=== PATIENT | male | born 1965 | race Two or more races ===

== ENCOUNTER 2017-06-27 12:37 | Emergency (ER) | payer BC ==
[2017-06-27 12:45] VITALS: BP 112/88; PULSE 89; TEMP 98.2; BMI 34.7
--- NOTE | 2017-06-27 14:19 | PDOC ---
History of Present Illness - General Chief Complaint: Pain Stated Complaint: RT KNEE PAIN Time Seen by Provider: 06/27/17 13:41 History Source: Patient Exam Limitations: No Limitations - History of Present Illness Initial Comments: 06/27/17 14:16 CHIEF COMPLAINT: Right medial knee pain HISTORY OF PRESENT ILLNESS: Patient is a 52-year-old male, history of right knee injury reports last evening he was dancing her to pop to his right knee now with medial right knee pain. Walking with a cane. REVIEW OF SYSTEMS: GENERAL: Afebrile, A&O x3 RESPIRATORY: No cough, wheezing, or hemoptysis. CARDIAC: No CP or SOB MUSCULOSKELETAL: Pain to right medial knee SKIN : No erythema, no edema, no bruising, no deformity. NEUROLOGICAL: Denies any numbness or tingling. PHYSICAL EXAM: GENERAL: The patient is awake, alert, and fully oriented, in no acute distress. HEAD: Normal with no signs of trauma. RESPIRATORY: Lungs clear bilaterally no rhonchi, rales, or wheezes CARDIAC: S1-S2 audible, no murmur rub or gallop EXTREMITIES: Decreased range of motion to right knee related to pain, no fluid appreciated, no bulge sign. No pain to superior or inferior patella. Negative drop test. Negative posterior leg test. No joint laxity noted, no ecchymosis, no deformity, no abrasions ,no edema. +3 popliteal pulse. Negative Homans sign. No calf pain or tenderness, no erythema or edema. MUSCULOSKELETAL: No spinal point tenderness. SKIN: Warm, Dry, normal turgor, no erythema, no edema no bruising. Past History - Past Medical History Allergies/Adverse Reactions: Allergies Allergy/AdvReac Type Severity Reaction Status Date / Time No Known Allergies Allergy Verified 06/27/17 12:45 Home Medications: Ambulatory Orders Multivitamins [Multivit ([facility] Formul[facility])] 1 tab PO DAILY 10/05/14 Testosterone Propionate 1 tab PO DAILY 10/05/14 Ibuprofen [Motrin -] 600 mg PO TID #21 tablet 06/27/17 HTN: Yes (border line) Other medical history: obese - Family Disease History Family Disease History: Heart Disease: Father - Suicide/Smoking/Psychosocial Hx Smoking History: Current some day smoker Have you smoked in the past 12 months: Yes Number of Cigarettes Smoked Daily: 1 Cigars Per Day: 2 Information on smoking cessation initiated: Yes 'Breaking Loose' booklet given: 06/27/17 Hx Alcohol Use: No Drug/Substance Use Hx: No Substance Use Type: None *Physical Exam - Vital Signs Last Vital Signs Temp Pulse Resp BP Pulse Ox 98.2 F 89 19 112/88 97 06/27/17 12:42 06/27/17 12:42 06/27/17 12:42 06/27/17 12:42 06/27/17 12:42 ED Treatment Course - RADIOLOGY Radiology Studies Ordered: Category Date Time Status KNEE 3 POS-RIGHT [RAD] Stat Radiology 06/27/17 13:41 Completed Medical Decision Making - Medical Decision Making 06/27/17 14:18 A/P: Patient here for evaluation of pain to right knee after dancing hurt a pop there is no erythema edema or deformity. Patient sent to x-ray x-rays normal no effusion is noted however patient with pain 10 out of 10. Will apply knee immobilizer, anti-inflammatories, follow-up with orthopedics. I discussed the physical exam findings, ancillary test results and final diagnoses with the patient. I answered all of the patient's questions. The patient was satisfied with the care received and felt comfortable with the discharge plan and treatment plan. The patient will call to arrange follow-up and will return to the Emergency Department with any new, persistent or worsening symptoms. *DC/Admit/Observation/Transfer Diagnosis at time of Disposition: Right knee injury Qualifiers: Encounter type: initial encounter Qualified Code(s): S89.91XA - Unspecified injury of right lower leg, initial encounter - Discharge Dispostion Disposition: HOME Condition at time of disposition: Good Admit: No - Prescriptions Prescriptions: Ibuprofen [Motrin -] 600 mg PO TID #21 tablet - Patient Instructions Printed Discharge Instructions: DI for Knee Pain, How to Use a Knee Immobilizer Additional Instructions: 1. Please return to the emergency department with any redness, swelling, increased pain, or any other concerns. 2. Keep splint on. 3. Please follow up in the office of Dr. Perry within a week if pain persists. 4. No weightbearing 5. Ice and elevate when at rest. 6. Motrin for pain - Post Discharge Activity Forms/Work/School Notes: Back to Work
== END 2017-06-27 14:24 | disposition home or self-care (01) ==
LOC: JERFT 12:37
PROC: 2W3QXYZ Immobilization of Right Lower Leg using Other Device (ICD-10-PCS; principal; 2017-06-27)
DX: S89.81XA Other specified injuries of right lower leg, initial encounter (principal); X50.3XXA Overexertion from repetitive movements, initial encounter; Y93.49 Activity, other involving dancing and other rhythmic movements; Y92.89 Other specified places as the place of occurrence of the external cause; Y99.8 Other external cause status
CPT/HCPCS: 73562-TC-RT; 99281-25

== ENCOUNTER 2019-03-05 09:21 | Inpatient (IN) | payer BC ==
--- NOTE | 2019-03-05 10:10 | PDOC ---
Attending Attestation - Resident Resident Name: NeyDonny newman - ED Attending Attestation I have performed the following: I have examined & evaluated the patient, The case was reviewed & discussed with the resident, I agree w/resident's findings & plan, Exceptions are as noted - HPI HPI: 54 yo M history HTN presents with buttock abscess. He states he felt a small pimple in the shower a few days ago. He states it rapidly got larger, now it is hard and painful. Denies fever, chills. Normal BMs. No prior history abscesses. - Physicial Exam PE: GENERAL: Awake, alert, and fully oriented, in no acute distress HEAD: No signs of trauma EYES: PERRLA, EOMI, sclera anicteric, conjunctiva clear ENT: Auricles normal inspection, hearing grossly normal, nares patent, oropharynx clear without exudates. Moist mucosa NECK: Normal ROM, supple, no lymphadenopathy, JVD, or masses LUNGS: Breath sounds equal, clear to auscultation bilaterally. No wheezes, and no crackles HEART: Regular rate and rhythm, normal S1 and S2, no murmurs, rubs or gallops ABDOMEN: Soft, nontender, normoactive bowel sounds. No guarding, no rebound. No masses EXTREMITIES: Normal range of motion, no edema. No clubbing or cyanosis. No cords, erythema, or tenderness NEUROLOGICAL: Cranial nerves II through XII grossly intact. Normal speech, normal gait. Motor and sensation intact SKIN: Warm, Dry, normal turgor, no rashes or lesions noted. RECTAL: +Indurated tender area between the 7 and 9 o'clock positions. +Small hemorrhoid at the 6 o'clock position. - Medical Decision Making Pt with perirectal abscess, will obtain CT to evaluate the depth. Likely will require gen surg consult.
[2019-03-05 10:31] LABS: BASO % 0.6 % (0-2.0); HEMOGLOBIN 14.8 GM/dL (11.7-16.9); LYMPH % 18.5 % (8-40); MCH 29.2 pg (25.7-33.7); MEAN CELL VOLUME 88.4 fl (80-96); MEAN PLT VOLUME 7.8 fl (7.5-11.1); MONO % 9.5 % (3.8-10.2); NEUT % 68.4 % (42.8-82.8); PLATELET COUNT 290 K/MM3 (134-434); RBC 5.09 M/mm3 (4.00-5.60); RDW 13.8 % (11.9-15.9); WHITE BLOOD COUNT 8.1 K/mm3 (4.0-10.0)
--- NOTE | 2019-03-05 11:02 | PDOC ---
History of Present Illness - General Chief Complaint: Abscess Boil Stated Complaint: PAIN Time Seen by Provider: 03/05/19 09:44 History Source: Patient Exam Limitations: No Limitations - History of Present Illness Initial Comments: 03/05/19 10:55 Patient is a 54M with history of HTN here today complaining of an abscess near his anus. He says it started 4 days ago and felt like a small pimple. It got worse so he came into the ED. Denies fevers, chills, nausea, vomiting. Last bowel movement this morning, normal. Denies chest pain and shortness of breath. Denies history of abscesses. Past History - Past Medical History Allergies/Adverse Reactions: Allergies Allergy/AdvReac Type Severity Reaction Status Date / Time No Known Allergies Allergy Verified 03/05/19 09:28 Home Medications: Ambulatory Orders Multivitamins [Multivit ([facility] Formul[facility])] 1 tab PO DAILY 10/05/14 Ibuprofen [Motrin -] 600 mg PO TID #21 tablet 06/27/17 Cardiac Disorders: Yes (irregular) COPD: No HTN: Yes (border line) - Family Disease History Family Disease History: Heart Disease: Father - Suicide/Smoking/Psychosocial Hx Smoking History: Never smoked Have you smoked in the past 12 months: Yes Number of Cigarettes Smoked Daily: 1 Cigars Per Day: 2 'Breaking Loose' booklet given: 06/27/17 Hx Alcohol Use: No Drug/Substance Use Hx: No Substance Use Type: None Review of Systems - Review of Systems Able to Perform ROS?: Yes Comments:: 03/05/19 11:00 GENERAL/CONSTITUTIONAL: No fever or chills. No weakness. HEAD, EYES, EARS, NOSE AND THROAT: No change in vision. No sore throat. CARDIOVASCULAR: No chest pain or shortness of breath RESPIRATORY: No cough, wheezing, or hemoptysis. GASTROINTESTINAL: No nausea, vomiting, diarrhea or constipation. GENITOURINARY: No dysuria, frequency, or change in urination. MUSCULOSKELETAL: No joint or muscle swelling or pain. No neck or back pain. SKIN: No rash NEUROLOGIC: No headache, vertigo, loss of consciousness, or change in strength/ sensation. ALLERGIC/IMMUNOLOGIC: No hives or skin allergy. *Physical Exam - Vital Signs Last Vital Signs Temp Pulse Resp BP Pulse Ox 98.9 F 104 H 18 170/87 99 03/05/19 09:25 03/05/19 09:25 03/05/19 09:25 03/05/19 09:25 03/05/19 09:25 - Physical Exam Comments: 03/05/19 11:02 GENERAL: Awake, alert, and fully oriented, in no acute distress RECTAL: Area of induration at 7 o'clock, tender, goes past anus HEAD: No signs of trauma, normocephalic, atraumatic EYES: PERRLA, EOMI, sclera anicteric, conjunctiva clear ENT: Auricles normal inspection, hearing grossly normal, nares patent, oropharynx clear without exudates. Moist mucosa NECK: Normal ROM, supple, no lymphadenopathy, JVD, or masses LUNGS: No distress, speaks full sentences, clear to auscultation bilaterally HEART: Regular rate and rhythm, normal S1 and S2, no murmurs, rubs or gallops, peripheral pulses normal and equal bilaterally. ABDOMEN: Soft, nontender, normoactive bowel sounds. No guarding, no rebound. No masses EXTREMITIES: Normal inspection, Normal range of motion, no edema. No clubbing or cyanosis. NEUROLOGICAL: Cranial nerves II through XII grossly intact. Normal speech, normal gait, no focal sensorimotor deficits SKIN: Warm, Dry, normal turgor, no rashes or lesions noted. ED Treatment Course - LABORATORY CBC & Chemistry Diagram: 03/05/19 10:15 03/05/19 10:22 - ADDITIONAL ORDERS Additional order review: 03/05/19 10:15 RBC 5.09 MCV 88.4 MCHC 33.0 RDW 13.8 MPV 7.8 Neutrophils % 68.4 Lymphocytes % 18.5 Monocytes % 9.5 Eosinophils % 3.0 Basophils % 0.6 Medical Decision Making - Medical Decision Making 03/05/19 11:05 Patient is 54M with history of HTN here today with cherie-rectal abscess. Labs drawn. Will do CT to evaluate extent of abscess. 03/05/19 13:12 CBC, CMP reassuring. CT shows 3x2cm perianal abscess. Case d/w Dr Galarza, general surgery, recs ceftriaxone/flagyl and admission. Will see tomorrow. Dr Isabelle castelan for admission. Accepted. *DC/Admit/Observation/Transfer Diagnosis at time of Disposition: Perianal abscess - Discharge Dispostion Disposition: HOME Condition at time of disposition: Good Decision to Admit order: Yes - Referrals - Patient Instructions - Post Discharge Activity
[2019-03-05 11:24] LABS: ALBUMIN 3.8 g/dl (3.4-5.0); BILIRUBIN,TOTAL 0.7 mg/dL (0.2-1); CALCIUM 8.9 mg/dL (8.5-10.1); POTASSIUM 4.6 mmol/L (3.5-5.1); TOT PROT 7.6 g/dl (6.4-8.2)
[2019-03-05] MEDS ORDERED: CEFTRIAXONE 1,000 MG in DEXTROSE 5%-WATER - 50 ML IVPB ONE (13:12)
[2019-03-05] MEDS ORDERED: CEFTRIAXONE 1 GM/50 ML BAG ONE (13:20)
[2019-03-05 14:42] VITALS: BMI 35.3
--- NOTE | 2019-03-05 15:28 | EKG ---
Test Reason : Blood Pressure : / mmHG Vent. Rate : 110 BPM Atrial Rate : 133 BPM P-R Int : 160 ms QRS Dur : 094 ms QT Int : 334 ms P-R-T Axes : 063 -13 009 degrees QTc Int : 452 ms SINUS TACHYCARDIA WITH PREMATURE ATRIAL COMPLEXES WITH ABERRANT CONDUCTION AND PREMATURE VENTRICULAR COMPLEXES MODERATE VOLTAGE CRITERIA FOR LVH, MAY BE NORMAL VARIANT NONSPECIFIC T WAVE ABNORMALITY ABNORMAL ECG NO PREVIOUS ECGS AVAILABLE Confirmed by TOMASZ NASCIMENTO, RAYMUNDO ([id number]) on 03/05/2019 3:27:47 PM Referred By: Tee CARREON Confirmed By:RAYMUNDO TOLBERT MD
[2019-03-05] MEDS: metoPROLOL SUCCINATE 25 MG TAB.SR.24H (FP) PO SCH (16:20)
[2019-03-05] MEDS: SODIUM CHLORIDE 0.45% 1,000 ML IV SCH ×2 (16:21→21:43)
[2019-03-05] MEDS: ACETAMINOPHEN 325 MG TABLET (FP) PO PRN (21:46)
[2019-03-06 07:35] LABS: HEMATOCRIT 43.2 % (35.4-49); HEMOGLOBIN 14.7 GM/dL (11.7-16.9); MCH 29.7 pg (25.7-33.7); MCHC 34.1 g/dl (32.0-35.9); MEAN CELL VOLUME 87.3 fl (80-96); MEAN PLT VOLUME 7.9 fl (7.5-11.1); PLATELET COUNT 271 K/MM3 (134-434); RBC 4.95 M/mm3 (4.00-5.60); RDW 13.8 % (11.9-15.9); WHITE BLOOD COUNT 10.2 K/mm3 (4.0-10.0)
[2019-03-06 08:58] LABS: INR 1.08 (0.83-1.09); PROTHROMBIN TIME (PATIENT) 12.8 SEC (9.7-13.0)
[2019-03-06 09:01] LABS: ACTIVATED PTT 32.8 SECONDS (25.2-36.5)
--- NOTE | 2019-03-06 10:34 | HP ---
Admitting History and Physical - Admission History of Present Illness: anal abcess x 1wk no other complaints History Source: Patient Limitations to Obtaining History: No Limitations - Past Medical History Gastrointestinal: Yes: Other (anal abcees) - Smoking History Smoking history: Never smoked Have you smoked in the past 12 months: Yes Aproximately how many cigarettes per day: 1 - Alcohol/Substance Use Hx Alcohol Use: No Home Medications - Allergies Allergies/Adverse Reactions: Allergies Allergy/AdvReac Type Severity Reaction Status Date / Time No Known Allergies Allergy Verified 03/05/19 09:28 - Home Medications Home Medications: Ambulatory Orders Multivitamins [Multivit ([facility] Formul[facility])] 1 tab PO DAILY 10/05/14 Ibuprofen [Motrin -] 600 mg PO TID #21 tablet 06/27/17 Family Disease History - Family Disease History Family History: Unremarkable Review of Systems - Review of Systems Constitutional: reports: No Symptoms, Malaise Eyes: reports: No Symptoms HENT: reports: No Symptoms Neck: reports: No Symptoms Cardiovascular: reports: No Symptoms Respiratory: reports: No Symptoms Gastrointestinal: reports: Other (anal abcess ?) Genitourinary: reports: No Symptoms Breasts: reports: No Symptoms Reported Musculoskeletal: reports: No Symptoms Integumentary: reports: No Symptoms Neurological: reports: No Symptoms Endocrine: reports: No Symptoms Hematology/Lymphatic: reports: No Symptoms Psychiatric: reports: No Symptoms Physical Examination Vital Signs: Vital Signs Temperature 99.4 F 03/06/19 06:00 Pulse Rate 94 H 03/06/19 06:00 Respiratory Rate 20 03/05/19 18:00 Blood Pressure 150/99 03/06/19 06:00 O2 Sat by Pulse Oximetry (%) 99 03/05/19 14:23 Gastrointestinal: Yes: Other (anal abcees) Renal/: Yes: WNL Breast(s): Yes: WNL Musculoskeletal: Yes: WNL Extremities: Yes: WNL Edema: No Edema: LLE: Trace Peripheral Pulses WNL: Yes Integumentary: Yes: WNL Wound/Incision: Yes: Clean/Dry Neurological: Yes: WNL ...Motor Strength: WNL Labs: CBC, BMP 03/06/19 07:10 03/05/19 10:22 Assessment/Plan bed sideprocedure 200 pm today? than d/c home echo done card w/u out pt neg in my office in past appt w meb wednesday 1100 oclock
--- NOTE | 2019-03-06 11:20 | EKG ---
Test Reason : Blood Pressure : / mmHG Vent. Rate : 105 BPM Atrial Rate : 105 BPM P-R Int : 158 ms QRS Dur : 094 ms QT Int : 346 ms P-R-T Axes : 060 -07 -01 degrees QTc Int : 457 ms SINUS TACHYCARDIA BIATRIAL ENLARGEMENT LEFT VENTRICULAR HYPERTROPHY NONSPECIFIC T WAVE ABNORMALITY ABNORMAL ECG WHEN COMPARED WITH ECG OF 05-MAR-2019 15:20, WITH PREMATURE VENTRICULAR OR ABERRANTLY CONDUCTED COMPLEXES IS NO LONGER PRESENT Confirmed by RAYMUNDO TOLBERT MD ([id number]) on 03/06/2019 11:19:36 AM Referred By: Confirmed By:RAYMUNDO TOLBERT MD
--- NOTE | 2019-03-06 11:49 | CON.CARD ---
Consult Consult Specialty:: Cardiology Referred by:: Zander Walton Reason for Consultation:: Preop. Abnormal ekg - History of Present Illness Chief Complaint: Anal abscess History of Present Illness: 54M with a pmhx of htn admitted with perianal abscess. Started 4 days ago as per patient but has since progressed and is painful. No fevers. No GI complaints. Denies any cardiac symptoms of chest pain, sob, palpitations, pnd, orthopnea, or edema. Noted to have pac's, lvh, and nonspecific T wave abnormalities on ekg. Reports had stress test with Dr. Walton last July for asymptomatic PAC's noted in the office. EKG: sinus tachycardia at 105bpm, nl axis, pac's, lvh, nonspecific T wave abnormalities. - History Source History Provided By: Patient - Past Medical History Gastrointestinal: Yes: Other (anal abcees) - Alcohol/Substance Use Hx Alcohol Use: No - Smoking History Smoking history: Never smoked Have you smoked in the past 12 months: Yes Aproximately how many cigarettes per day: 1 Home Medications - Allergies Allergies/Adverse Reactions: Allergies Allergy/AdvReac Type Severity Reaction Status Date / Time No Known Allergies Allergy Verified 03/05/19 09:28 - Home Medications Home Medications: Ambulatory Orders Multivitamins [Multivit ([facility] Formul[facility])] 1 tab PO DAILY 10/05/14 Ibuprofen [Motrin -] 600 mg PO TID #21 tablet 06/27/17 Vital Signs: Vital Signs Temperature 99.4 F 03/06/19 06:00 Pulse Rate 94 H 03/06/19 06:00 Respiratory Rate 20 03/05/19 18:00 Blood Pressure 150/99 03/06/19 06:00 O2 Sat by Pulse Oximetry (%) 99 03/05/19 14:23 Constitutional: Yes: No Distress Neck: Yes: Supple Respiratory: Yes: CTA Bilaterally Gastrointestinal: Yes: Soft Cardiovascular: Yes: Regular Rate and Rhythm JVD: No Carotid Bruit: No PMI: Non-Displaced Heart Sounds: Yes: S1, S2 Murmur: No: Systolic Murmur Edema: No - Other Data Labs, Other Data: CBC, BMP 03/06/19 07:10 03/05/19 10:22 INR, PTT INR 1.08 (0.83-1.09) 03/06/19 07:10 Troponin, BNP 03/05/19 03/06/19 16:50 00:30 Troponin I 0.03 0.03 Troponin, BNP 03/05/19 03/06/19 16:50 00:30 Troponin I 0.03 0.03 Imaging - Results Chest X-ray: Report Reviewed EKG: Image Reviewed Problem List - Problems (1) Perianal abscess Code(s): K61.0 - ANAL ABSCESS Assessment/Plan 54M with a pmhx of htn and tobacco use (cigars) admitted with perianal abscess. Started 4 days ago as per patient but has since progressed and is painful. No fevers. No GI complaints. Denies any cardiac symptoms of chest pain, sob, palpitations, pnd, orthopnea, or edema. Noted to have pac's, lvh, and nonspecific T wave abnormalities on ekg. Reports had stress test with Dr. Walton last July for asymptomatic PAC's noted in the office. EKG: sinus tachycardia at 105bpm, nl axis, pac's, lvh, nonspecific T wave abnormalities. 1) Preop -As per Dr. Walton's note plan is for bedside procedure. Patient with pac's and nonspecific ST abnormalities/LVH on ekg. Asymptomatic from cardiac standpoint. No significant murmurs on exam. No cardiac contraindication to surgery. Cardiac work up as outpatient. Can follow up with Dr. Samayoa on 1st floor or with me at [address] [place] [address] Ave. [phone] 2) HTN Patient reports allergy to losartan/hives. -Started on metoprolol for htn as per primary team given pac's. F/u as outpatient and if needs additional agent in future than add amlodipine. Discussed diet and lifestyle changes and cigar cessation. Please call back if needed will sign off.
[2019-03-06 12:57] VITALS: BP 151/79; PULSE 91; TEMP 99.5
[2019-03-06] MEDS ORDERED: LIDOCAINE 1%-EPI 1:100,000 30 ML MDV IJ ONE (13:00)
--- NOTE | 2019-03-06 13:22 | ECHO ---
Name: CRISTIANE FANG Exam:Adult Echocardiogram Study Date: 03/06/2019 09:34 AM Age: 54 yrs Reason For Study: Pre-op Height: 66 in Weight: 219 lb BSA: 2.1 m2 MMode/2D Measurements & Calculations IVSd: 1.1 cm Ao root diam: 2.7 cm LVIDd: 5.7 cm LA dimension: 3.8 cm LVIDs: 5.3 cm LVPWd: 1.1 cm EDV(Teich): 158.6 ml LVOT diam: 2.2 cm ESV(Teich): 133.6 ml LVLd ap4: 9.3 cm SV(MOD-sp4): 56.0 ml EDV(MOD-sp4): 142.0 ml LVLs ap4: 8.7 cm ESV(MOD-sp4): 86.0 ml RV S Rodri: 14.5 cm/sec Doppler Measurements & Calculations MV E max rodri: 82.9 cm/sec Ao V2 max: 117.4 cm/sec MV A max rodri: 31.6 cm/sec Ao max P.5 mmHg MV E/A: 2.6 Ao V2 mean: 92.5 cm/sec MV dec time: 0.11 sec Ao mean P.6 mmHg Ao V2 VTI: 22.1 cm SAMUEL(I,D): 2.1 cm2 SAMUEL(V,D): 2.3 cm2 LV V1 max P.8 mmHg SV(LVOT): 46.9 ml LV V1 mean P.1 mmHg LV V1 max: 67.1 cm/sec LV V1 mean: 51.2 cm/sec LV V1 VTI: 11.9 cm Med Peak E' Rodri: 4.4 cm/sec Med E/e': 18.9 Lat Peak E' Rodri: 8.0 cm/sec Lat E/e': 10.4 Procedure A complete two-dimensional transthoracic echocardiogram was performed (2D, M-mode, Doppler and color flow Doppler). Left Ventricle The left ventricle is normal in size. Left ventricular systolic function is severely reduced. Ejectio n Fraction = 20-25%. Diastolic dysfunction, Grade III (restrictive pattern), consistent with markedly i ncreased left atrial pressure. There is severe global hypokinesis of the left ventricle. Right Ventricle The right ventricle is normal size. The right ventricular systolic function is normal. RV systolic TD I is 14 cm/s. Atria The left atrial size is normal. Right atrial size is normal. Mitral Valve There is mild mitral annular calcification. There is mild mitral regurgitation. Tricuspid Valve The tricuspid valve is normal in structure and function. There is mild tricuspid regurgitation. Aortic Valve The aortic valve is normal in structure and function. No aortic regurgitation is present. Pulmonic Valve The pulmonic valve is not well visualized. Great Vessels The aortic root is normal size. Pericardium/Pleura There is no pericardial effusion. Interpretation Summary The left ventricle is normal in size. Left ventricular systolic function is severely reduced. There is severe global hypokinesis of the left ventricle. Ejection Fraction = 20-25%. Diastolic dysfunction, Grade III (restrictive pattern), consistent with markedly increased left atria l pressure. The right ventricular systolic function is normal. The left atrial size is normal. Right atrial size is normal. There is mild mitral annular calcification. There is mild mitral regurgitation. There is mild tricuspid regurgitation. There is no pericardial effusion. Previous study is not available for comparison Gennaro Swain MD 03/06/2019 01:21 PM
--- NOTE | 2019-03-06 13:56 | PN ---
Progress Note (short form) - Note Progress Note: surgery i&d cherie-rectal abscess at 1:00 position in lithotomy. 10 ml pus drained. dry dressing. Plan- warm soaks with epsom salt tid. suggest augmentin 875 bid for 5 days. f/ u in 3-4 weeks to evaluate for fistula. no surgical contraindication to discharge.
--- NOTE | 2019-03-06 14:38 | DS ---
Physical Examination Vital Signs: Vital Signs Temperature 99.5 F 03/06/19 10:00 Pulse Rate 91 H 03/06/19 10:00 Respiratory Rate 18 03/06/19 10:00 Blood Pressure 151/79 03/06/19 10:00 O2 Sat by Pulse Oximetry (%) 99 03/06/19 09:00 Constitutional: Yes: Well Nourished Eyes: Yes: WNL HENT: Yes: WNL Neck: Yes: WNL Cardiovascular: Yes: WNL Respiratory: Yes: WNL Gastrointestinal: Yes: WNL ...Rectal Exam: Yes: Mass Renal/: Yes: WNL Breast(s): Yes: WNL Musculoskeletal: Yes: WNL Extremities: Yes: WNL Edema: No Peripheral Pulses WNL: Yes Integumentary: Yes: WNL Wound/Incision: Yes: Clean/Dry Neurological: Yes: WNL ...Motor Strength: WNL Psychiatric: Yes: WNL Labs: CBC, BMP 03/06/19 07:10 03/05/19 10:22 Discharge Summary Reason For Visit: PERIANAL ABSCESS Current Active Problems Perianal abscess (Acute) Condition: Good - Instructions Diet, Activity, Other Instructions: apptb w me frid 1100 augmetin called in Disposition: HOME - Home Medications Comprehensive Discharge Medication List: Ambulatory Orders Multivitamins [Multivit ([facility] Formul[facility])] 1 tab PO DAILY 10/05/14 Ibuprofen [Motrin -] 600 mg PO TID #21 tablet 06/27/17 Amoxicillin/Potassium Clav [Augmentin 875-125 Tablet] 1 each PO Q12H #10 tablet 03/06/19
[2019-03-06] MEDS: metoPROLOL SUCCINATE 25 MG TAB.SR.24H (FP) PO SCH (15:45)
[2019-03-06] MEDS: ACETAMINOPHEN 325 MG TABLET (FP) PO PRN (15:45)
--- NOTE | 2019-03-06 16:38 | CONS ---
DATE OF CONSULTATION: 03/06/2019 CONSULTATION AND PROCEDURE REASON FOR CONSULTATION AND PROCEDURE: Perirectal abscess. BRIEF HISTORY: This is a 54-year-old male presented to the [facility] emergency room complaining of perirectal pain that had been lasting for 4 days. He had a CAT scan of his pelvis which suggested a left-sided abscess 3 cm x 2 cm in size. This was felt not to require emergent drainage by the emergency room in the department, and the patient was admitted for intravenous antibiotics and for routine surgical consultation to evaluation it for drainage. Overnight he did well. He states it felt more swollen, but he has had no fever. His white blood cell count remains normal. PAST MEDICAL HISTORY: Significant for hypertension. MEDICATION: He takes no medications. ALLERGIES: No known drug allergies. FAMILY HISTORY: Negative for colon cancer. SOCIAL HISTORY: Negative for tobacco. REVIEW OF SYSTEMS: GENERAL: Denies fatigue or malaise. CARDIAC: Denies chest pain or palpitations. RESPIRATORY: Has shortness of breath, wheeze. GASTROINTESTINAL: No nausea, no vomiting. This has never occurred before. Denies blood in his stool. Denies recent weight loss. GENITOURINARY: Denies dysuria. MUSCULOSKELETAL: Denies joint pain, joint swelling. PSYCHIATRIC: Denies hearing voices. PHYSICAL EXAMINATION: GENERAL: This is an overweight 54-year-old male in no distress. HEAD: Normocephalic, sclerae anicteric. NECK: Supple. CHEST: Clear. ABDOMEN: Soft. EXTREMITIES: No edema. GENITOURINARY: On examination of his anal exam, at the 1 o'clock position, as seen on lithotomy he has an area of fluctuance. Digital rectal exam is deferred due to pain. ASSESSMENT: This is a 54-year-old male with a perirectal abscess at the 1 o' clock position as seen on lithotomy. Will perform incision and drainage. PROCEDURE: Incision and drainage of perirectal abscess. SURGEON: Savage Burton D.O. FLUID DESIGNER: None. ANESTHESIA: Local. BLOOD LOSS: Minimal. DRAINS: None. FINDINGS: There are 5 mL of purulent material. DESCRIPTION OF PROCEDURE: The patient is placed in the lateral recumbent position with the right side up. The perirectal area is prepped and draped in sterile fashion. 10 mL of lidocaine with epinephrine is used to anesthetize the overlying skin. A radial incision is made at the 1 o'clock position, releasing approximately 5 mL of pus. A digital probe is done, and it tracks parallel to the anus as expected. The length of the incision is approximately 2 cm in length. At this point, a dry dressing in place. PLAN: The patient will do warm sitz bath 3 times a day with Epsom salt. He is surgically stable for discharge. He will go home on a prescription for Augmentin 875 b.i.d. for 5 days. He will follow me in 3 to 4 weeks' time to evaluate for development of a fistula and further recommendations will be made if that is found to be the case. If the patient has not had a colonoscopy, he would have benefit from screening colonoscopy. DO LAZARUS ABEBE/[id number] MTDD
== END 2019-03-06 16:21 | disposition home or self-care (01) | DRG 395 ==
LOC: JER 09:21 → JERBED 13:16 → J6S 14:13
PROVIDERS: ADMIT Family Medicine; ATTEND Family Medicine
PROC: 0D9P3ZZ Drainage of Rectum, Percutaneous Approach (ICD-10-PCS; principal; 2019-03-06)
DX: K61.1 Rectal abscess (principal); I10 Essential (primary) hypertension
CPT/HCPCS: 36415; 71046-TC-FY; 72193-TC; 80053; 82550; 82553; 84484; 85025; 85027; 85610; 85730; 87389; 93005; 93010; 93306-TC; 99283-25